=== PATIENT | female | born 1970 | race Caucasian/White ===

== ENCOUNTER 2025-06-25 18:19 | Emergency (ER) | payer OTHER, SELFPAY ==
--- OUTSIDE RECORDS SUMMARY | 2025-06-25 18:20 | XMS_ITS | Clinical Summary ---
Author Organization [employer] [facility] Address [address] [place] [address] Care Team Providers Care Valver Name Role Phone Paul Andrea MD Primary Care Provider [phone] Allergies Active AllergyReactionsCriticalityNoted DateComments Sulfamethoxazole-Kzcbactijqzq50/29/2009 Medications MedicationSigDispense QuantityRefillsLast FilledStart DateEnd DateStatus varenicline (CHANTIX) 1 mg tablet Indications:Tobacco abuse disorder1/2 tab po qd x 4 days then 1/2 tab po bid X 3 days then 1 po bid 60 tablet Active Active Problems ProblemNoted DateDiagnosed DateOther and unspecified mqdxlarwlvxdbx44/01/2010 Immunizations ImmunizationAdministration DatesNext DqtQqjd51/23/2016 Family History Medical HistoryRelationNameCommentsCancer-breastMotherRelationNameStatusComments Mother Social History Tobacco UseTypesPacks/DayYears UsedDateSmoking Tobacco: Some JfglIpcrebwjrf292 Smokeless Tobacco: Never Tobacco Cessation:Counseling Given: Yes Comments:pt has quit for 5 years in the past. Alcohol UseStandard Drinks/WeekCommentsNot Asked0 (1 standard drink = 0.6 oz pure alcohol)Social ConnectionsAnswerDate RecordedFrequency of Communication with Friends and FamilyNot on file06/23/2021Financial Resource StrainAnswerDate RecordedDifficulty of Paying Living ExpensesNot on file06/23/2021ifficulty of Paying Living ExpensesNot on file06/23/2021CommentsNoSex and Gender InformationValueDate RecordedSex Assigned at BirthNot on fileLegal SexFemale 07/10/2012 5:27 AM CSTGender IdentityNot on fileSexual OrientationNot on file Obstetrics History GravidaParaTermPretermABIABSABEctopicMultipleLivingLive Hrmbes112ZbgiXrhfxcaNP Total LaborLabor/2nd/4feRanpylZvuNzbaGfenIIPEkzU7G6AhjnOjzcBjyrJnmz Last Filed Vital Signs Vital SignReadingTime TakenCommentsBlood Mngqpbfd397/8205/19/2016 3:28 PM EMPLOYMENT INTERVIEWER Ojpcc504105/19/2016 3:26 PM TUJHmdnibhmbqr61.9 ??C (98.4 ??F)03/03/2012 8:34 AM CDTRespiratory Rate--Oxygen Saturation--Inhaled Oxygen Concentration--Bszmhn48.5 kg (195 lb)05/19/2016 3:26 PM VQMWzcbku788.3 cm (4' 10)05/19/2016 3:26 PM EMPLOYMENT INTERVIEWER Body Mass Index40.7605/19/2016 3:26 PM EMPLOYMENT INTERVIEWER Plan of Treatment Health MaintenanceDue DateLast DoneCommentsDepression screening for age 12+ 1984HIV for age 15-Hepatitis C screening for age 18-79 1990Hepatitis B series for 19+ (1 of 3 - 19+ 3-dose series)1991Pap test for age 21-4/, 05/30/2006, 06/25/2005, Additional history existsColonoscopy through age Lipids for age 45-7505/01/2017 10/23/2008MI (ht and wt on same day) for age 18+Mammogram for age 40-7504/, 10/21/2017, 09/27/2016, Additional history existsPneumococcal series for age 50+ (1 of 1 - PCV)2022Zoster (shingles) series for age 50+ (1 of 2)2022OVID-19 vaccine series ( - 2024-26 season)2025Influenza Vaccine (#1)2025Tetanus zwhcksz3805/19/2026 05/19/2016RSV vaccine for adults or (1 - 1-dose 75+ series)2047 Procedures Procedure NamePriorityDate/TimeAssociated DiagnosisCommentsXR MAMMO BILAT GPONEZPARHrgipyg79/29/2019 9:00 AM CDT Visit for screening mammogram [employer]EWEL[employer] THIN PREP PAP SCREEN FXYTQBErqunlq39/29/2009 4:23 PM CDT Screening for Malignant Neoplasm of the Cervix LIPID FJRHNYgpetbw14/29/2009 3:46 PM CDT Screening for Malignant Neoplasm of the Cervix from Last 3 Months or Most Recently Relevant to Health Maintenance Results * XR MAMMO BILAT SCREENING (10/23/2018 9:00 AM CDT)Anatomical RegionLaterality ModalityBREASTS, Breast Left, Breast RightBilateralMammographySpecimen (Source)Anatomical Location / LateralityCollection Method / VolumeCollection TimeReceived Time Impressions 10/23/2018 12:15 PM CDT There is no radiographic evidence for malignancy. Recommend annual mammograms. A lay language report of this examination will be provided to the patient. MAMMOGRAM ASSESSMENT: ??ACR 2 Benign Narrative 10/23/2018 12:15 PM CDT XR MAMMO BILAT SCREENING [[id number]] CLINICAL HISTORY: ??This is an asymptomatic 48 y.o. patient. INDICATION FOR EXAM: Mammogram Screening. TECHNIQUE: CC & MLO views were obtained. This digital study was evaluated with the assistance of Computer-Aided Detection. COMPARISON FILMS: Yes 10/21/[address] [facility] 09/27/[address] [facility] FINDINGS: ??Mammographically, the breast tissue is almost entirely fat. No suspicious masses or microcalcifications. ??Benign appearing calcifications within both breasts. Authorizing ProviderResult TypeResult StatusPeter Juancarlos Andrea MDMAMMOFinal Result * JEWEL[employer] THIN PREP PAP SCREEN IMAGED (10/23/2008 4:23 PM CDT)ComponentValueRef RangeTest MethodAnalysis TimePerformed AtPathologist SignatureCYTOLOGY ??CYTOPATHOLOGY REPORT ??[facility] ?? Status: Final Report ? [id number] ?? CLINICAL INFORMATION ?Date of Last LMP ?: 10/13/2008 ?Last Pap Date ? : 05/2006 ?Last Pap Result ? : NIL ?ABN Pillow/Bx Past 5 YRS: None ?Hormone Usage ? : None ?Menstrual Status ?: Regular Periods ?Pillow/Bx done today ?: No ?Additional Data ? : None given ?? HPV Request ?: HPV if ASCUS ?? SPECIMEN SOURCE ?: Cervical/vaginal ThinPrep Vial, screening ?? SPECIMEN ADEQUACY ?: Satisfactory for evaluation Endocervical ?component present. ? INTERPRETATION/RESULT: ?Negative for intraepithelial lesion or malignancy (NIL) ? Cytology 1st Screener : ??had ?? Signed by: ? had ?? This specimen was screened by the FDA approved ThinPrep Imaging ?? System and manually reviewed. ?? NOTE: The Pap test is a screening technique, not a diagnostic ?? procedure. It is used primarily to screen for squamous cancers and ?? precursor lesions. Published studies have shown that it is subject to ?? both false negative and false positive results. The pap test should ?? not be used as the sole means to diagnose or exclude pre-malignant and ?? malignant lesions. ?? COLLECTED: 10/23/08 ?? ACCESSIONED: 10/23/08 ?? SIGNED: 11/02/08[facility] CODENILABChildren[facility] (Source)Anatomical Location / LateralityCollection Method / VolumeCollection TimeReceived TimeCervical/Vaginal (Cervical/Vaginal)10/23/2008 4:23 PM CDT 10/23/2008 4:21 PM CDT Narrative Authorizing ProviderResult TypeResult StatusOscar Ochoa MDPATHOLOGY/CYTOLOGY Final ResultPerforming OrganizationAddressCity/State/ZIP CodePhone Number [facility] INTERNAL ZIP [phone] [address] * (ABNORMAL) LIPID PANEL (10/23/2008 3:46 PM CDT)ComponentValueRef RangeTest MethodAnalysis TimePerformed AtPathologist SignatureCHOLESTEROL,TCRRS205(H)110 - 199 mg/dLSAUK CENTRE HOSPITALTRIGLYCERIDES271(H)40 - 149 mg/dL [facility]ITALHDL ETNZKLYAYRR98>40 mg/dLSAUK CENTRE HOSPITALCHOL/HDL RATIO5.87(H)<4.51[facility] HOSPITALLDL CHOLESTEROL 180(H)<131 mg/dLSAUK CENTRE HOSPITALPATIENT STATUSFastingChippewa City [facility] (Source)Anatomical Location / Laterality Collection Method / VolumeCollection TimeReceived TimeBlood specimen (specimen)BLOOD SPECIMEN / Yjffrhh2610/23/2008 3:46 PM CDT10/23/2008 3:41 PM CDT Narrative Authorizing ProviderResult TypeResult StatusOscar Ochoa MDCHEMISTRYFinal ResultPerforming OrganizationAddressCity/State/ZIP CodePhone Number [facility] INTERNAL ZIP [phone] [address] from Last 3 Months or Most Recently Relevant to Health Maintenance Insurance Care Teams Team MemberRelationshipSpecialtyStart DateEnd Paul Andrea MD PCP - GeneralFamily Aldgcogo99/23/16
[2025-06-25 18:45] VITALS: BP 195/123; PULSE 85; RESP 18; TEMP 35.7; O2SAT 95; BMI 46.3
--- NOTE | 2025-06-25 19:05 | ED.DIZZY ---
HPI - Dizziness General Chief Complaint: Dizziness/Vertigo Stated Complaint: Dizzy, Lt hand numbness, vomiting Time Seen by Provider: 06/25/25 18:30 History of Present Illness HPI Narrative: This 55-year-old female comes in with her significant other because of rather sudden onset of dizziness which she clarifies as vertigo. She also had nausea and 1 vomiting episode. She states that if she remains still the vertigo symptoms are absent but reproduced with certain movements. She reports some tingling sensation in her left hand also. She does not report any hearing changes and does not have any neurologic deficits. Related Data Previous Rx's ?Medication ?Instructions ?Recorded meclizine 25 mg tablet 25 mg PO QID PRN #20 tabs 06/25/25 Allergies Allergy/AdvReac Type Severity Reaction Status Date / Time No Known Drug Allergies Allergy Verified 06/25/25 18:53 Review of Systems Status of ROS: Reports: 10 or more systems reviewed and unremarkable except as noted in History and below Narrative: Constitutional: No fevers, no weight gain or loss. Eyes: No discharge. No vision changes. HENT: No congestion, no sore throat, no ear pain. Cardiovascular: No chest pain, no palpitations. Respiratory: No shortness of breath, no wheezes, no cough. Gastrointestinal: No abdominal pain, no vomiting, no diarrhea. Genitourinary: No dysuria, no hematuria. Musculoskeletal: Normal range of motion. Skin: No rashes, no pruritis. Neurological: No weakness, sensory change, speech change. She reports vertigo symptoms as described above. Endo/Heme/Allergies: No bruising or bleeding. No polydipsia. Pysch: no suicidality, no anxiety, no insomnia. All other systems reviewed and are negative. PFSH PFS Social History Smoking Status: Current every day smoker What tobacco products do you use: cigarettes Smoking packs per day: 0.5 Smoking cigarettes per day: 10.0 Do you use any of these nicotine containing products: None How often do you have a drink containing alcohol: never AUDIT-C Alcohol total score: 0 Non-prescribed substance use: denies use Exam Narrative: Exam Narrative: Constitutional: Well-developed, well-nourished, no acute distress. HEENT: Normocephalic, atraumatic. No nystagmus. Neck: Normal range of motion. Nontender. Supple. Heart: Regular. No murmurs. Normal rate. Intact distal pulses. Lungs: Clear to auscultation. No chest discomfort. No wheezes, rhonchi, or rales. Abdomen: Normal bowel sounds. Nontender. No rebound tenderness. Genitalia: Deferred. Back: No midline tenderness. Normal range of motion. Extremities: Normal range of motion. No injury. Skin: Intact. No rash. Warm. No erythema or pallor. Neurologic: No altered sensation. No weakness. Alert and oriented. No facial asymmetry. Tongue is midline. Hxetlc-cs-jmsx is normal. No pronator drift. Principal Database Developer strength is equal bilaterally. Able to raise each leg from the bed. Psychiatric: No suicidality. No anxiety or depression. No insomnia. Nursing notes and vitals signs are reviewed. Const: Vital Signs, click to edit/add: Vital Signs - 24 hr 06/25/25 18:45 Temperature 96.3 F L Pulse Rate [Pulse Oximeter] 85 Respiratory Rate 18 Blood Pressure [Ri ght Upper Arm] 195/123 H Pulse Oximetry 95 Oxygen Delivery Me thod Room Air Course Vital Signs Vital signs: Initial Vital Signs Temperature 96.3 F L 06/25/25 18:45 Temperature Source Temporal Artery Scan 06/25/25 18:45 Pulse Rate 85 06/25/25 18:45 Respiratory Rate 18 06/25/25 18:45 Blood Pressure 195/123 H 06/25/25 18:45 Blood Pressure Mean 147 H 06/25/25 18:45 Blood Pressure Position Sitting 06/25/25 18:45 Pulse Oximetry 95 06/25/25 18:45 Oxygen Delivery Method Room Air 06/25/25 18:45 Vital Signs Temperature 96.3 F L 06/25/25 18:45 Pulse Rate 85 06/25/25 18:45 Respiratory Rate 18 06/25/25 18:45 Blood Pressure 195/123 H 06/25/25 18:45 Pulse Oximetry 95 06/25/25 18:45 Oxygen Delivery Method Room Air 06/25/25 18:45 Temperature 96.3 F L 06/25/25 18:45 Pulse Rate 85 06/25/25 18:45 Respiratory Rate 18 06/25/25 18:45 Blood Pressure 195/123 H 06/25/25 18:45 Pulse Oximetry 95 06/25/25 18:45 Oxygen Delivery Method Room Air 06/25/25 18:45 Medications Administered Medications: Discontinued Medications Generic Name Dose Route Start Last Admin Trade Name Freq PRN Reason Stop Dose Admin Meclizine HCl 25 mg 06/25/25 19:05 06/25/25 19:30 Meclizine Hcl 25 Mg Tablet PO 06/25/25 19:06 25 mg ONCE ONE Administration Ondansetron HCl 4 mg 06/25/25 19:05 06/25/25 19:31 Ondansetron Odt 4 Mg Tab PO 06/25/25 19:06 4 mg ONCE ONE Administration MDM - Dizziness MDM Narrative Medical decision making narrative: This patient comes in with vertigo symptoms typical of a vestibular neuritis. Her neurologic exam is completely normal. She did receive oral doses of meclizine and Zofran in this brought improvement her symptoms. She no longer has any nausea symptoms. She was able to get up and ambulate. I did provide [facility] prescription for Zofran and a prescription for meclizine from her preferred pharmacy. Discharge Plan Discharge Clinical Impression: Acute vestibular neuritis Patient Disposition: Home, Self-Care Condition: Improved Additional Instructions: Take medication as needed and directed. Increase activity as tolerated. Follow up with MD return if worsening. Prescriptions: New meclizine 25 mg tablet 25 mg PO QID PRNQty: 20 0RF Follow Up/Referrals: Provider,Not a Local [Primary Care Provider, Family Practice] Stand Alone Forms: kingsky Info Instructions
[2025-06-25] MEDS: MECLIZINE HCL 25 MG TABLET PO (19:30)
[2025-06-25] MEDS: ONDANSETRON ODT 4 MG TAB PO (19:31)
== END 2025-06-25 20:12 | disposition home or self-care (01) ==
PROVIDERS: Emergency Provider Emergency Medicine Emergency Medical Services
DX: H81.20 Vestibular neuronitis, unspecified ear (principal); F17.210 Nicotine dependence, cigarettes, uncomplicated
CPT/HCPCS: 99283; 99284; A9270